=== PATIENT | female | born 1975 | race Two or more races ===

== ENCOUNTER 2019-02-14 16:49 | Emergency (ER) | payer OTHER ==
[~2019-02-14] VITALS: Ht 165.1 cm; Wt 66.0 kg
[2019-02-14] MEDS ORDERED: ONDANSETRON HCL 4MG/2ML INJ IV STA (19:28)
[2019-02-14] MEDS ORDERED: SODIUM CHLORIDE 0.9% 1,000 ML IV ONE (19:28)
[2019-02-14] MEDS ORDERED: LEVETIRACETAM 1000MG/100ML 100 ML IV ONE (19:30)
[2019-02-14 19:46] LABS: BASOPHILS % 0.2 % (0.0-2.0); EOSINOPHILS % 0.3 % (0.0-5.0); HEMATOCRIT. 29.6 % (36.0-48.0); LYMPHOCYTES % 11.6 % (20.0-50.0); MONOCYTES % 4.7 % (2.0-8.0); NEUTROPHILS % 83.2 % (40.0-76.0); PLATELET 406 x1000/uL (130-400); RED BLOOD CELL COUNT 4.49 mill/uL (4.2-5.4)
[2019-02-14 19:50] LABS: CLARITY URINE CLEAR (CLEAR); COLOR URINE YELLOW (YELLOW); KETONES URINE NEGATIVE (NEGATIVE); LEUKOCYTE ESTERASE URINE 1+ (NEGATIVE); NITRITE URINE NEGATIVE (NEGATIVE); OCCULT BLOOD URINE NEGATIVE (NEGATIVE); PH URINE 5.5 (4.5-8.0); PROTEIN URINE NEGATIVE (NEGATIVE); UROBILINOGEN URINE 0.2 E.U./dL (0.2-1.0)
[2019-02-14 19:51] LABS: CHLORIDE 110 mEq/L (98-107)
[2019-02-14 19:55] LABS: ETHANOL BLOOD < 10 mg/dL
[2019-02-14 20:07] LABS: PLATELET ESTIMATE INCREASED
[2019-02-14 20:12] LABS: *AMPHETAMINES SCREEN URINE NEGATIVE (NEGATIVE); *BARBITURATES SCREEN URINE NEGATIVE (NEGATIVE); *BENZODIAZEPINES SCREEN URINE NEGATIVE (NEGATIVE); *COCAINE SCREEN URINE NEGATIVE (NEGATIVE); CANNABINOID URINE SCREEN NEGATIVE (NEGATIVE); METHADONE URINE SCREEN NEGATIVE (NEGATIVE)
[2019-02-14 20:13] LABS: OPIATES URINE SCREEN NEGATIVE (NEGATIVE); PHENCYCLIDINE URINE SCREEN NEGATIVE (NEGATIVE)
[2019-02-14] MEDS ORDERED: ASPIRIN 81MG TABLET PO ONE (20:45)
[2019-02-14 21:09] LABS: PROTHROMBIN TIME 9.9 sec (9.6-11.0)
[2019-02-14 23:20] VITALS: BP 110/49
== END 2019-02-15 00:01 | disposition left against medical advice (07) ==
LOC: ER 16:49
DX: S01.512A Laceration without foreign body of oral cavity, initial encounter (principal); G40.909 Epilepsy, unspecified, not intractable, without status epilepticus; D50.9 Iron deficiency anemia, unspecified; Z98.890 Other specified postprocedural states; Z86.73 Personal history of transient ischemic attack (TIA), and cerebral infarction without residual deficits; X58.XXXA Exposure to other specified factors, initial encounter; Y93.89 Activity, other specified; Y92.89 Other specified places as the place of occurrence of the external cause; Y99.8 Other external cause status
CPT/HCPCS: 36415; 70450; 80053; 80305; 80320; 81003; 84484; 85025; 85610; 93005; 96365; 99284; J1953; J7030; Z7610; G0480